=== PATIENT | male | born 1970 | race Caucasian/White ===

== ENCOUNTER 2016-09-17 13:28 | Outpatient (CLI) | payer BC ==
--- NOTE | 2016-09-20 13:42 | CONSULTATION REPORT ---
REFERRING PHYSICIAN: Dr. Jose David Miller CONSULTING PHYSICIAN: Dr. Ilir Burrell HISTORY OF PRESENT ILLNESS: Sotero Kelly is a 46-year-old white male who has had recurrent periodic joint pain for the past 10 years. The onset is sudden and random. It could be the left shoulder or the right wrist but presently, it is the right foot. It responds only to prednisone. He has been seen by a economic forecaster in [place] and apparently a full rheumatology evaluation was negative. He has had uric acid levels which were normal and was told he probably did not have gout. Associated symptoms are just lack of energy, fatigue, maybe a little weakness, otherwise, no skin rashes or nodules. No color changes of the hands or feet in the cold. He has had no chest pain, shortness of breath, cough or wheezing. No nausea or vomiting or diarrhea. No dark stools or bloody stools. No urinary symptoms. No skin rashes and he has no history of psoriasis, however. PAST MEDICAL HISTORY: Hypertension. SOCIAL HISTORY: The patient does smoke. He does not drink. He is . He works as a residential real estate sales manager. He enjoys motorcycling. He has 3 children. FAMILY HISTORY: An aunt had scleroderma and his uncle, a patient of mine, also suffers from an autoimmune disorder. REVIEW OF SYSTEMS: Review of systems as above. PHYSICAL EXAMINATION: General: He looks well. Vital Signs: Height: 6 feet 2 inches. Weight: 232 pounds. T: 98.6, heart rate: 80, R: 12, BP: 150/90. HEENT: Sclerae are anicteric. Conjunctivae are pink. No stomatitis or glossitis. External ears and nose are unremarkable. LUNGS: Clear bilaterally with no crackles or wheezing. HEART: Regular rhythm. ABDOMEN: Soft and nontender. VASCULAR: No edema or cyanosis. PERIPHERAL JOINTS: The DIPs, PIPs, MCPs, wrists, elbows, shoulders, hips, knees , ankles, and feet showed no swelling. He has exquisite tenderness at right MTP #1 but no erythema and no effusion. 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 The Achilles tendons are unremarkable. IMPRESSION: Recurrent periodic inflammatory arthropathy. PLAN: I suspect this gentleman has gout irrespective of his uric acid level. However , because of his family history, we will proceed with [facility] testing, CBC, CMP, sedimentation rate, CRP, and a uric acid level. He is going to bring me back any x-rays he has had done. If he cannot find one and has not had sufficient studies, we will x-ray both hands, wrists, and feet. I am going to see him back in 4 weeks and try to sort this out. Thank you very much. cc: Dr. Jose David Miller. [facility]
== END 2016-09-17 13:30 ==
LOC: RHEU 13:28
PROVIDERS: ATTEND Internal Medicine
DX: M30.0 Polyarteritis nodosa (principal)
CPT/HCPCS: 99203; 99204